=== PATIENT | male | born 1975 | race Caucasian/White ===

== ENCOUNTER 2024-06-19 01:03 | Day surgery (SDC) | payer OTHER, SELFPAY ==
[2024-06-11 11:06] VITALS: BMI 39.4
--- OUTSIDE RECORDS SUMMARY | 2024-06-19 01:06 | XMS_ITS | Clinical Summary ---
Author Organization [facility] Address [address] [place] [id number] Care Team Providers Care Apparel Machinery Instructor Name Role Phone Sarah Young MD Primary Care Provider Social History Tobacco Use Types Packs/Day Years Used Date Smoking Tobacco: Never Assessed Sex and Gender Information Value Date Recorded Sex Assigned at Not on file Legal Sex Male 7:24 PM CDT Gender Identity Not on file Sexual Orientation Not on file Last Filed Vital Signs Vital Sign Reading Time Taken Comments Blood Pressure 146/84 09/18/2012 10:00 AM CDT Pulse 72 09/18/2012 10:00 AM CDT Temperature - - Respiratory Rate - - Oxygen Saturation - - Inhaled Oxygen Concentration - - Weight 122.5 kg (270 lb) 09/18/2012 10:04 AM CDT Height 188 cm (6' 2 ) 09/18/2012 10:04 AM CDT Body Mass Index 34.67 09/18/2012 10:04 AM CDT Plan of Treatment Health Maintenance Due Date Last Done Comments Colorectal Cancer Screening Colonoscopy (10 Years) 1977 Annual Physical 1980 Hepatitis C 11/03/1995 DTaP, Tdap and Td Vaccines ( 1 - Tdap) 1996 Hepatitis B Vaccines (1 of 3 - 19+ 3-dose series) 1996 COVID-19 Vaccine (2023-2 5 season) 2023 Influenza Adult (#1) 2023 Meningococcal B Vaccine Aged Out No l onger eligible based on patient's age to complete this topic Meningococcal Vaccine Aged Out No cedrick timo eligible based on patient's age to complete this topic Pneumococcal Vaccine: Pediat rics (0 to 5 Years) and At-Risk Patients (6 to 64 Years) Aged Out No longer eligible b ased on patient's age to complete this topic RSV Immunizations Under 20 Months Aged Out No longer eligible based on patient's age to complete this topic Care Teams Apparel Machinery Instructor Relationship Specialty Start Date End Date aSrah Young MD [address] [place] [address] PCP - General 02/11/13
--- OUTSIDE RECORDS SUMMARY | 2024-06-19 01:07 | XMS_ITS | Encounter Summary ---
Author Organization [facility] Address [facility] [place] [address] Care Team Providers Care Kitchen Utility Associate Name Role Phone Sarah Young MD Primary Care Provider Encounter Details Date Type Department Care Team (Latest Contact Info) Description 01/29/2018 [facility] , Neeta Toledo MD Social History Tobacco Use Types Packs/Day Years Used Date Smoking Tobacco: Never Assessed Sex and Gender Information Value Date Recorded Sex Assigned at Not on file Legal Sex Male 7:24 PM CDT Gender Identity Not on file Sexual Orientation Not on file documented as of this encounter Plan of Treatment Not on file documented as of this encounter Visit Diagnoses Not on filedocumented in this encounter Care Teams Kitchen Utility Associate Relationship Specialty Start Date End Date Sarah Young MD [address] [place] [address] PCP - General 02/11/13 documented as of this encounter
--- OUTSIDE RECORDS SUMMARY | 2024-06-19 01:07 | XMS_ITS | Data Portability ---
Author Organization [place] - [facility], Main Office Address [address] [place] [address] Care Team Providers Care Economics Instructor Name Role Phone CAYDEN SANTILLAN Primary Care Provider CAYDEN SANTILLAN Referring Provider Assessment Encounter Date Assessment Date Assessment LastModified by Organization Details LastModified Time 09/06/2022 09/06/2022 Continue current therapy try to lose some weight he will see me back in 6 months all questions answered [email or web address] Not available 10/21/2022 21:02:01 02/01/2023 02/01/2023 I will have Orthopedics take a look at him but but I suspect it will be conservative management [email or web address] Not available 02/02/2023 14:42:15 02/07/2023 02/07/2023 Impression: I believe this patient most likely has sustained a tearing of the jemal of the bicipital groove specifically likely tearing of the medial band of the coracohumeral ligament which may also include partial-thicknes s tearing of the subscapularis upper edge or even a small full-thickness tear. He is able to do a subscap liftoff fairly easily. I suspect he has a subluxation based on the positive biceps provocative testing location of his tenderness and the absence of a lela deformity. partial tearing of the long of the biceps is midsubstance could also be a the same way but is usually associated with subluxation. I explained him that the diagnosis of this condition of subluxation of the humeral head would be made by MRI scan. His initial management I recommended a course of physical therapy and prescription for Naprosyn to decrease inflammation. He denies any liver or kidney problems or peptic ulcer disease. Side effects instruction sheet was provided. I will see him back in 6 weeks assess his progress. If he is still having significant symptoms I would recommend proceeding with MRI shoulder at that time. I will see him back in 6 weeks to assess his progress. 30 minutes were spent in total care this patient more than half the time spent in [id number] care. Not available 02/11/2023 16:56:13 03/22/2023 03/22/2023 patient returns. He finished his physical therapy for the right shoulder. He was referred for symptoms of rotator cuff tendinitis when he was seen 6 weeks ago. He finished his 4 week course of Naprosyn 2 weeks ago. Feels that his shoulder is doing great now and he has no problems with. Examination today he has full active range of motion right shoulder without discomfort. It 5 5 muscle strength with thumbs down abduction external rotation belly press and subscap liftoff all without discomfort. Negative primary binge min. Negative speed's. Negative. Yergason's. There is no tenderness no redness swelling or warmth about the right shoulder today skin looks normal. Impression: Patient is doing very well following one-month course of naproxen and course of physical therapy. He has a negative examination today which argues against significant underlying pathology such as rotator cuff tear or biceps tendon subluxation. He is working his regular job without difficulty. I will see him back on as-needed basis. Not available 03/24/2023 15:31:40 Plan of Treatment Reminders Order Date Submit Date Provider Last Modified By Organization Details Last Modified Time Details Appointments None recorded. Lab PSA, serum or plasma [address] [facility] (Lab), [address] [place], [address], 3 15:45:30 HbA1c (hemoglobin A1c), blood [address] [facility] (Lab), [address] [place], [address], 3 15:45:29 CBC w/ auto diff 2022 023 [facility] (Lab), [address] [place], [address], 3 13:19:26 CMP, serum or plasma 2022 023 [facility] (Lab), [address] [place], [address], 3 13:20:48 lipid panel, serum 2022 023 [facility] (Lab), [address] [place], [address], 3 13:20:52 testosteron e, free + total, serum 2022 023 [facility] (Lab), [address] [place], [address], 3 16:09:45 Referral orthopedic surgeon referral - Bicep tendon tear 2022 023 SCHUYLER Varela MD, [address], [facility], [place], [address], 3 16:57:17 Procedures None recorded. Surgeries None recorded. Imaging XR, shoulder 2022 023 [email or web address] [facility] [place], [address], [place], [address], 3 10:08:52 Medication Orders Naprosyn 500 mg tablet 2022 023 [id number], [address], [place], [address], 3 15:23:13 testosteron e cypionate 200 mg/mL intramuscul ar oil 2022 023 [email or web address] Not available 3 11:38:13 Patient TargetsNo targets recorded. Patient InstructionsNo instructions recorded. Reason for Referral Orthopedic Surgeon Referral for Pain in right arm Bicep tendon tear Referring Physician: Cayden Santillan, Internal Medicine, Encounter Date: 02/01/2023 Results Created Date Observation Date Name Description Value Unit Range Abnormal Flag Note LastModifiedBy Organization Detail LastModifiedTime 12/06/1912/05/2022 CBC/C OMPLE TE BLD COUNT W/DIF F white blood cells 8.1 x10'3 /uL 4.2-10 .8 Not Available [facility] (Lab) [address] [place], [address], 12/05/2022 13:19:26 12/06/1912/05/2022 CBC/C OMPLE TE BLD COUNT W/DIF F red blood cells 4.71 x10'6 /uL 4.10-5 .80 Not Available [facility] (Lab) [address] [place], [address], 12/05/2022 13:19:26 12/06/19 23 12/05/2022 CBC/C OMPLE TE BLD COUNT W/DIF F hemoglobin 15.3 g/dL 13.2-1 7.0 Not Available [facility] (Lab) [address] [place], [address], 12/05/2022 13:19:26 12/06/1912/05/2022 CBC/C OMPLE TE BLD COUNT W/DIF F hematocrit 47.0 % 39.3-5 0.0 Not Available [facility] (Lab) [address] [place], [address], 12/05/2022 13:19:26 12/06/1912/05/2022 CBC/C OMPLE TE BLD COUNT W/DIF F mean red cell volume 99.8 fL 80.0-9 7.0 high Not Available [facility] (Lab) [address] [place], [address], 12/05/2022 13:19:26 12/06/1912/05/2022 CBC/C OMPLE TE BLD COUNT W/DIF F mean red cell hemoglobin 32.5 pg 27.0-3 3.0 Not Available [facility] (Lab) [address] [place], [address], 12/05/2022 13:19:26 12/06/1912/05/2022 CBC/C OMPLE TE BLD COUNT W/DIF F mean RBC HGB concentratio n 32.6 g/dL 31.0-3 6.0 Not Available [facility] (Lab) [address] [facility] [place], [address], 12/05/2022 13:19:26 12/06/1912/05/2022 CBC/C OMPLE TE BLD COUNT W/DIF F red cell distribution width 15.0 % 11.8-1 5.5 Not Available [facility] (Lab) [address] [place], [address], 12/05/2022 13:19:26 12/06/1912/05/2022 CBC/C OMPLE TE BLD COUNT W/DIF F platelets 221 x10'3 /uL 150-40 0 Not Available [facility] (Lab) [address] [place], [address], 12/05/2022 13:19:26 12/06/1912/05/2022 CBC/C OMPLE TE BLD COUNT W/DIF F mean platelet volume 11.4 fL 9.0-12 .4 Not Available [facility] (Lab) [address] [place], [address], 12/05/2022 13:19:26 12/06/1912/05/2022 CBC/C OMPLE TE BLD COUNT W/DIF F neutrophils 57.4 % 39.0-7 2.0 Not Available [facility] (Lab) [address] [place], [address], 12/05/2022 13:19:26 12/06/1912/05/2022 CBC/C OMPLE TE BLD COUNT W/DIF F lymphocytes 30.3 % 16.0-4 7.0 Not Available [facility] (Lab) [address] [place], [address], 12/05/2022 13:19:26 12/06/19 23 12/05/2022 CBC/C OMPLE TE BLD COUNT W/DIF F monocytes 8.5 % 5.0-12 .0 Not Available [facility] (Lab) [address] [place], [address], 12/05/2022 13:19:12/06/1912/05/2022 CBC/C OMPLE TE BLD COUNT W/DIF F eosinophils 2.7 % 1.0-7. 0 Not Available [facility] (Lab) [address] [place], [address], 12/05/2022 13:19:12/06/1912/05/2022 CBC/C OMPLE TE BLD COUNT W/DIF F basophils 0.7 % 0.0-2. 0 Not Available [facility] (Lab) [address] [place], [address], 12/05/2022 13:19:26 12/06/1912/05/2022 CBC/C OMPLE TE BLD COUNT W/DIF F immature granulocytes 0.4 % 0.00-0 .50 Not Available [facility] (Lab) [address] [place], [address], 12/05/2022 13:19:26 12/06/1912/05/2022 CBC/C OMPLE TE BLD COUNT W/DIF F neutrophils, absolute count 4.66 x10'3 /uL 1.5-8. 0 Not Available [facility] (Lab) [address] [place], [address], 12/05/2022 13:19:26 12/06/1912/05/2022 CBC/C OMPLE TE BLD COUNT W/DIF F lymphocytes, absolute count 2.46 x10'3 /uL 1.07-3 .43 Not Available [facility] (Lab) [address] [place], [address], 12/05/2022 13:19:26 12/06/1912/05/2022 CBC/C OMPLE TE BLD COUNT W/DIF F monocytes, absolute count 0.69 x10'3 /uL 0.29-0 .99 Not Available [facility] (Lab) [address] [place], [address], 12/05/2022 13:19:12/06/1912/05/2022 CBC/C OMPLE TE BLD COUNT W/DIF F eosinophils, absolute count 0.22 x10'3 /uL 0.02-0 .53 Not Available [facility] (Lab) [address] [place], [address], 12/05/2022 13:19:12/06/1912/05/2022 CBC/C OMPLE TE BLD COUNT W/DIF F basophils, absolute count 0.06 x10'3 /uL 0.01-0 .08 Not Available [facility] (Lab) [address] [place], [address], 12/05/2022 13:19:26 12/06/1912/05/2022 CBC/C OMPLE TE BLD COUNT W/DIF F immature granulocytes ,absolute 0.03 x10'3 /uL 0.00-0 .05 Not Available [facility] (Lab) [address] [place], [address], 12/05/2022 13:19:26 12/06/1912/05/2022 CBC/C OMPLE TE BLD COUNT W/DIF F nucleated red blood cells 0.0 % -0 Not Available [facility] (Lab) [address] [place], [address], 12/05/2022 13:19:26 12/06/19 23 12/05/2022 CBC/C OMPLE TE BLD COUNT W/DIF F NRBC# 0.00 x10'3 /uL Not Available [facility] (Lab) [address] [place], [address], 12/05/2022 13:19:26 12/06/19 23 12/05/2022 COMPR EHENS PHUONG METAB OLIC PANEL sodium 141 mmol/ L 137-14 5 Not Available [facility] (Lab) [address] [place], [address], 12/05/2022 13:20:48 12/06/19 23 12/05/2022 COMPR EHENS PHUONG METAB OLIC PANEL potassium 4.4 mmol/ L 3.5-5. 1 Not Available [facility] (Lab) [address] [place], [address], 12/05/2022 13:20:48 12/06/19 23 12/05/2022 COMPR EHENS PHUONG METAB OLIC PANEL chloride 103 mmol/ L 98-107 Not Available [facility] (Lab) [address] [place], [address], 12/05/2022 13:20:48 12/06/19 23 12/05/2022 COMPR EHENS PHUONG METAB OLIC PANEL carbon dioxide 30 mmol/ L 22-30 Not Available [facility] (Lab) [address] [place], [address], 12/05/2022 13:20:48 12/06/19 23 12/05/2022 COMPR EHENS PHUONG METAB OLIC PANEL anion gap 12.4 mmol/ L 14-22 low Not Available [facility] (Lab) [address] [place], [address], 12/05/2022 13:20:48 12/06/19 23 12/05/2022 COMPR EHENS PHUONG METAB OLIC PANEL glucose 115 mg/dL 70-99 high Not Available [facility] (Lab) [address] [place], [address], 12/05/2022 13:20:48 12/06/19 23 12/05/2022 COMPR EHENS PHUONG METAB OLIC PANEL BUN 17 mg/dL 8-19 Not Available [facility] (Lab) [address] [place], [address], 12/05/2022 13:20:48 12/06/19 23 12/05/2022 COMPR EHENS PHUONG METAB OLIC PANEL creatinine 0.78 mg/dL 0.66-1 .25 Not Available [facility] (Lab) [address] [place], [address], 12/05/2022 13:20:48 12/06/19 23 12/05/2022 COMPR EHENS PHUONG METAB OLIC PANEL GFR >60 Refer ence Range : Carlos ge GFR Healt hy Adult : >60 mL/mi n/1.7 3 m2 Chron ic Kidne y Disea se: 15-60 mL/mi n/1.7 3 m2 Kidne y Failu re: <15/m L/min /1.73 m2 www.n iddk. nih.g ov The MDRD study equat ion has not been valid ated in child jessica <18 years of age; pregn ant women ; the elder ly >85 years of age; or in some racia l or ethni c subgr oups, such as Hiswv nics. Outsi de the valid ated myranda eters , estim ated GFR is less accur ate, requi ring clini eliot judgm ent on a case- by-ca se basis . Clini eliot inter preta tion for other races and ages must be made by the clini indy. The MDRD study equat ion has not been valid ated for the evalu ation of serum creat inine relat ed to nutri werner l statu s or medic ation usage . For perso ns <18 years of age, a pedia tric GFR calcu lator is avail able on the [facility] websi te: https ://jannet james.josh aquino/tio pavon s/kdo qi/gf r_cal culat or Not Available [facility] (Lab) [address] [place], [address], 12/05/2022 13:20:48 12/06/19 23 12/05/2022 COMPR EHENS PHUONG METAB OLIC PANEL alkaline phosphatase 86 U/L 38-126 Not Available [facility] (Lab) [address] [place], [address], 12/05/2022 13:20:48 12/06/19 23 12/05/2022 COMPR EHENS PHUONG METAB OLIC PANEL alanine aminotransfe rase 45 U/L 0-50 Not Available [facility] (Lab) [address] [place], [address], 12/05/2022 13:20:48 12/06/19 23 12/05/2022 COMPR EHENS PHUONG METAB OLIC PANEL aspartate aminotransfe rase 26 U/L 15-46 Not Available [facility] (Lab) [address] [place], [address], 12/05/2022 13:20:48 12/06/19 23 12/05/2022 COMPR EHENS PHUONG METAB OLIC PANEL bilirubin, total 0.50 mg/dL 0.20-1 .30 Not Available [facility] (Lab) [address] [place], [address], 12/05/2022 13:20:48 12/06/19 23 12/05/2022 COMPR EHENS PHUONG METAB OLIC PANEL calcium 9.8 mg/dL 8.4-10 .2 Not Available [facility] (Lab) [address] [place], [address], 12/05/2022 13:20:48 12/06/19 23 12/05/2022 COMPR EHENS PHUONG METAB OLIC PANEL total protein 7.5 g/dL 6.3-8. 2 Not Available [facility] (Lab) [address] [place], [address], 12/05/2022 13:20:48 12/06/19 23 12/05/2022 COMPR EHENS PHUONG METAB OLIC PANEL albumin 4.4 g/dL 3.4-5. 0 Not Available [facility] (Lab) [address] [place], [address], 12/05/2022 13:20:48 12/06/19 23 12/05/2022 COMPR EHENS PHUONG METAB OLIC PANEL globulin 3.1 g/dL 2.6-4. 2 Not Available [facility] (Lab) [address] [place], [address], 12/05/2022 13:20:48 12/06/19 23 12/05/2022 COMPR EHENS PHUONG METAB OLIC PANEL A/G ratio 1.4 ratio 1.0-2. 0 Not Available [facility] (Lab) [address] [place], [address], 12/05/2022 13:20:48 12/06/19 23 12/05/2022 LIPID PANEL cholesterol 199 mg/dL 140-19 9 NIH LISA NSUS RECOM MENDA TION FOR MOLINA STERO L: ADULT CHILD LOW RISK: <200 <170 BORDE RLINE : <200- 239 ----- HIGH RISK: >240 >200 Not Available [facility] (Lab) [address] [place], [address], 12/05/2022 14:33:23 12/06/1912/05/2022 LIPID PANEL triglyceride s 209 mg/dL 0-150 high NIH LISA NSUS REPOR T RECOM MENDA TION FOR TRIGL YCERI BOB: ADULT CHILD LOW RISK: <150 ----- BODER LINE: 150-1 99 ----- HIGH RISK: >200 ----- Not Available [facility] (Lab) [address] [place], [address], 12/05/2022 14:33:23 12/06/1912/05/2022 LIPID PANEL HDL cholesterol 48 mg/dL 40- Not Available [facility] (Lab) [address] [place], [address], 12/05/2022 14:33:23 12/06/1912/05/2022 LIPID PANEL LDL cholesterol, calculated 109 mg/dL 0-130 NIH LISA NSUS REPOR T RECOM MENDA TIONS FOR LDL: ADULT CHILD LOW RISK <130 <110 (OPTI MAL LDL) <100 ----- BORDE RLINE : 130-1 59 ----- HIGH RISK: >160 >130 A TRIGL YCERI DE RESUL T >400 INVAL IDATE S THE CALCU LATIO N FOR LDL FRACT IONAT ION - THE LDL RESUL T WILL NOT BE REPOR HE. Not Available [facility] (Lab) [address] [place], [address], 12/05/2022 14:33:23 12/06/1912/05/2022 PSA SCREE N PSA medicare screen 0.69 NG/mL 0.00-4 .00 Not Available [facility] (Lab) [address] [place], [address], 12/05/2022 13:48:50 12/06/1912/05/2022 HEMOG LOBIN A1C HA1C 6.5 % 4.0-6. 0 high Diabe dre Scree michele Crite freddy: <5.7% Consi stent with absen ce of diabe dre 5.7-6 .4% Consi stent with incre ased risk for diabe dre (pred iabet es) >OR=6 .5% Consi stent with diabe dre REFER ENCE: Diabe dre Care 2016, 39(Alan ppl.1 ):s13 -s22 Not Available [facility] (Lab) [address] [place], [address], 12/05/2022 20:07:23 12/06/19 23 12/10/2022 TESTO STERO NE, FREE+ TOTAL LC/MS testosterone , total, lc/MS 277.1 NG/dL 264.0- 916.0 This [facility] rp LC/MS -MS metho d is curre ntly certi fied by the CDC Hormo ne Stand ardiz ation Progr am (HoSt ). Adult male refer ence inter tara is based on a popul ation of healt hy nonob florinda males (BMI <30) betwe en 19 and 39 years old. Tiana mueller, et.al . JCEM 2017, 102;1 161-1 173. PMID: 84185 103. Not Available [facility] (Lab) [address] [place], [address], 12/10/2022 16:09:44 12/06/19 23 12/10/2022 TESTO STERO NE, FREE+ TOTAL LC/MS testosterone , free 6.71 NG/dL 5.00-2 1.00 Not Available [facility] (Lab) [address] [place], [address], 12/10/2022 16:09:44 12/06/19 23 12/10/2022 TESTO STERO NE, FREE+ TOTAL LC/MS % free testosterone 2.42 % 1.50-4 .20 Perfo rmed at: [facility] [place] [address] [facility] [place] [address] Lab Direc tor: Jessica cheema MD, Phone : [phone] Not Available [facility] (Lab) [address] [place], [address], 12/10/2022 16:09:44 02/08/20 23 XR, shoul jackie No observ ation record ed. [email or web address] [facility] [place] [address], [place], [address], 02/11/2023 16:48:57 Result Notes None recorded. Problems Name Problem SNOMED Code Status Onset Date Resolution Date Notes Provider Name and Address Organization Details Recorded Time Renewal of prescripti on Active 2021 Not Available [facility] 4 01:37:26 Testicular hypofuncti on 297134464 Active 2021 Not Available [facility] 4 01:37:26 Testostero ne level below reference range 901542229 Active 2021 Not Available [facility] 4 01:37:26 Chronic back pain 355825582 Active 2016 Not Available [facility] 4 01:37:26 Foot callus 389379427 Active 2021 Not Available [facility] 4 01:37:26 Pain in left foot 0224387447407 07 Active 2021 Not Available [facility] 4 01:37:26 Dyslipidem ia 001600626 Active 2019 Not Available [facility] 4 01:37:26 Porokerato sis 688288546 Active 2021 Not Available [facility] 4 01:37:26 Essential hypertensi on 89978342 Active 2016 Not Available [facility] 4 01:37:26 Blood glucose outside reference range 916339528 Active 2022 Not Available [facility] 4 01:37:26 Pain in right arm 757261416 Active 2022 Not Available [facility] 4 01:37:26 Pain in right arm 970145107 Active 2022 Not Available [facility] 4 01:37:26 Pain of right shoulder joint 4487217644276 9100 Active 2022 Not Available [facility] 4 01:37:26 Problem Notes None recorded. Procedures Surgical History Date Name Laterality Status Provider Name and Address Organization Details Recorded Time 06/07/19 total replacement of hip completed Not Available [facility] 05/24/2022 00:57:11 Back Surgery completed Not Available [facility] 05/24/2022 00:57:11 Imaging Results Imaging Date Name Status LastModified by Organiz ation Details LastModified Time 02/07/2023 XR, shoulder completed [email or web address] [facility] [place] [address], [place], [address], 02/11/2023 16:48:57 Procedure Notes None recorded. Medical Equipment None Reported. Allergies No known drug allergies Medications Name Sig Start Date Stop Date Status Note LastModified by Organization Details LastModified Time telmisart an 40 mg-hydroc hlorothia zide 12.5 mg tablet Take 1 tablet every day by oral route. 02/12 completed Not Available Not Available Not Available prednison e 10 mg tablet 01/10 completed Not Available Not Available Not Available meloxicam 15 mg tablet 05/11 completed Not Available Not Available Not Available hydrocodo ne 10 mg-acetam inophen 325 mg tablet 05/11 completed Not Available Not Available Not Available triamcino lone acetonide 0.1 % topical cream APPLY TO HANDS QHS active Not Available Not Available No t Available oxycodone -acetamin ophen 5 mg-325 mg tablet 09/20 completed Not Available Not Available Not Available lisinopri l 20 mg-hydroc hlorothia zide 25 mg tablet TAKE ONE TABLET DAILY 01/08 completed stopped and changed to Telmisar myles Not Available Not Available Not Available testoster one cypionate 200 mg/mL intramusc ular oil INJECT 0.25 ML INTRAMUS CULARLY EVERY 4 WEEKS (DISCARD UNUSED PORTION AFTER FIRST USE) 02/07 completed Not Available Not Available Not Available methylpre dnisolone 4 mg tablets in a dose pack Take 1 dose pk by oral route as directed . 01/08 completed Not Available Not Available Not Available losartan 50 mg-hydroc hlorothia zide 12.5 mg tablet TAKE 1 TABLET BY MOUTH DAILY 2023 active Not Available Not Available Not Avai lable naproxen 500 mg tablet TAKE 1 TABLET BY MOUTH TWICE A DAY 03/22 completed Not Available Not Available Not Available BD Luer-Sourav Syringe 3 mL 21 gauge x 1 USE DIRECTED WITH TESTOSTE RAMO 02/07 completed Not Available Not Available Not Available oxycodone 5 mg tablet 09/20 completed Not Available Not Available Not Available enoxapari n 40 mg/0.4 mL subcutane ous syringe active Not Available Not Available Not Available rosuvasta tin 10 mg tablet TAKE 1 TABLET BY MOUTH DAILY 03/24 completed Not Available Not Available Not Available rosuvasta tin 20 mg tablet TAKE 1 TABLET BY MOUTH DAILY active Not Available Not Available No t Available Tylenol 2021 active Not Available Not Available Not Avai lable diclofena c 1 % topical gel 09/20 completed Not Available Not Available Not Available testoster one cypionate 200 mg/mL intramusc ular kit Inject 1 mL every 4 weeks by intramus cular route. 02/07 completed last filled: 09/17 next OV: 12/26 Not Available Not Available Not Available Xtampza ER 18 mg capsule sprinkle 09/20 completed Not Available Not Available Not Available Vitals Date Recorded Body mass index (BMI) Body height Heart rate Body temperature Body weight Systolic blood pressure Diastolic blood pressure Provider Name and Address Organization Details Last Updated DateTime 2 39.7 kg/m2 182.88 cm 84 /min 98.1 [degF] 397120. 56 g 128 mm[Hg] 84 mm[Hg] Not Available [facility] 3 01:03:17 Date Recorded Body height Body mass index (BMI) Body weight Body temperature Heart rate Systolic blood pressure Diastolic blood pressure Provider Name and Address Organization Details Last Updated DateTime 3 182.88 cm 40.6 kg/m2 573567. 12 g 97.4 [degF] 84 /min 142 mm[Hg] 92 mm[Hg] SHIRA Guallpa [place] [facility] 3 10:09:52 Date Recorded Body height Body mass index (BMI) Body weight Body temperature Heart rate Systolic blood pressure Diastolic blood pressure Provider Name and Address Organization Details Last Updated DateTime 3 182.88 cm 41.8 kg/m2 952255. 45 g 97.7 [degF] 90 /min 128 mm[Hg] 78 mm[Hg] Rosalinda Baird MA [facility] Ryan [facility] 16:17:17 Date Recorded Body height Body mass index (BMI) Body weight Provider Name and Address Organization Details Last Updated DateTime 02/07/2023 180.34 cm 42.4 kg/m2 005676.08 g SHIRA [place] [facility] Ryan [facility] 02/07/2023 11:41:17 Date Recorded Body height Provider Name an d Address Organization Details Last Updated DateTime 03/22/2023 180.34 cm SHIRA [place] [facility] 03/22/2023 15:23:05 Social History Question Answer Notes LastModified by Organizat ion Details LastModified Time Tobacco Smoking Status Current Every Day Smoker Not Available [facility] 05/24/2022 00:55:32 Do You Have An Advance Directive? No [id number] Information not available 05/24/2022 What Is Your Level Of Alcohol Consumption? Occasional [id number] Information not available 05/24/2022 What Is Your Level Of Caffeine Consumption? Moderate [id number] Information not available 05/24/2022 How Much Tobacco Do You Chew? None [id number] Information not available 05/24/2022 In The 14 Days Before Symptom Onset, Have You Had Close Contact With A Laboratory-confi rmed COVID-19 While That Case Was Ill? No [id number] Information not available 05/24/2022 In The 14 Days Before Symptom Onset, Have You Had Close Contact With A Person Who Is Under Investigation For COVID-19 While That Person Was Ill? No [id number] Information not available 05/24/2022 What Type Of Diet Are You Following? REGULAR [id number] Information not available 05/24/2022 Which Illicit Or Recreational Drugs Have You Used? None [id number] Information not available 05/24/2022 Do You Or Have You Ever Used E-cigarettes Or Vape? Former User Of Electronic Cigarettes [id number] Information not available 05/24/2022 What Is Your Occupation? [employer] [id number] Information not available 05/24/2022 Have There Been Any Changes To Your Family Or Social Situation? No [id number] Information not available 05/24/2022 Are There Any Guns Present In Your Home? No MIGRATION.01382 [id number] Information not available 05/24/2022 Do You Use Insect Repellent Routinely? No MIGRATION.71706 [id number] Information not available 05/24/2022 Where Do You Live? [facility] MIGRATION.76367 [id number] Information not available 05/24/2022 What Was The Date Of Your Most Recent Tobacco Screening? 02/01/2023 Information not available 02/01/2023 Do You Have Any Pets? Yes [id number].73026 [id number] Information not available 05/24/2022 What Is Your Relationship Status? MIGRATION.53784 [id number] Information not available 05/24/2022 Do You Have Smoke And Carbon Monoxide Detectors In Your Home? Yes MIGRATION.71484 24462 Information not available 05/24/2022 At What Age Did You Start Smoking Tobacco? 20 MIGRATION.70257 [id number] Information not available 05/24/2022 Are You Passively Exposed To Smoke? Yes MIGRATION.94503 94065 Information not available 05/24/2022 Do You Or Have You Ever Used Smokeless Tobacco? Never Used Smokeless Tobacco MIGRATION.52787 72906 Information not available 05/24/2022 Are There Any Smokers In Your House? Yes MIGRATION.69702 11404 Information not available 05/24/2022 How Much Tobacco Do You Smoke? 0.5 PPD MIGRATION.59834 61397 Information not available 05/24/2022 Do You Feel Stressed (tense, Restless, Nervous, Or Anxious, Or Unable To Sleep At Night)? [id number] MIGRATION.02148 17498 Information not available 05/24/2022 Do You Use Sunscreen Routinely? No MIGRATION.59179 95389 Information not available 05/24/2022 Has Tobacco Cessation Counseling Been Provided? No MIGRATION.10591 70862 Information not available 05/24/2022 Have You Recently Traveled Abroad? No Information not available 02/01/2023 Do You Have Any Dietary Restrictions? No MIGRATION.98333 75938 Information not available 05/24/2022 Sex: Unknown Functional Status Question Answer Note LastModified by Organizat ion Details LastModified Time What is your exercise level? Occasional [id number] Information not available 05/24/2022 Mental Status None recorded. Family History Relationship Description Onset Age of this Age Resolved Age Notes LastModified by Organization Details LastModified Time Mother Hypertensive disorder [id number] Not available 05/24/2022 00:57:16 Maternal Grandmother Malignant tumor of lung [id number].[id number] Not available 05/24/2022 00:57:16 Medical History Condition Response NERVE DISEASE N BLINDNESS N RHEUMATIC FEVER N KIDNEY STONES N BLADDER PROBLEMS N OTHER # 1 N POLIO N LUNG DISEASE/DISORDER N RADIATION / CHEMOTHERAPY N COPD N Other # 2 N BLOOD DISEASES N SURGERY N EAR OR HEARING PROBLEMS N MUMPS N BOWEL PROBLEMS N DEPRESSION (INCLUDING POST ) N STROKE/TIA N ULCERS N BENIGN PROSTATIC HYPERPLASIA N MEASLES N MYOCARDIAL INFARCTION N OBESITY N GERD/NAUSEA N ANEURYSM N URINARY/BLADDER/KIDNEY PROBLEMS N INPATIENT PSYCH CARE N CORONARY ARTERY DISEASE (CAD) N ADDICTION CONCERNS N Impotence N ENDOMETRIOSIS N USE OF BLOOD THINNERS N SKIN PROBLEMS N GASTROINTESTINAL DISORDER N PERIPHERAL VASCULAR DISEASE N MUSCLE,JOINT OR BONE PROBLEMS N GASTROINTESTINAL BLEEDING N BLOOD CLOTS N ASTHMA N CATARACTS N ERECTILE DYSFUNCTION N VARICOSITIES N GI PROBLEMS N Low Testosterone N INFERTILITY N AIDS/HIV N LIVER DISEASE N MALE HYPOGONADISM N HYPERTENSION Y Deficiency N ANXIETY DISORDER N BLOOD TRANSFUSION N ANEMIA/BLOOD DISORDER N CHRONIC EAR INFECTIONS N BRONCHITIS N TUBERCULOSIS N GLAUCOMA N FOOT PROBLEM N DIVERTICULITIS N SLEEP APNEA N CHICKENPOX N INFECTIOUS DISEASE N PROSTATE N HEART ARRHYTHMIA N INSOMNIA N HIGH CHOLESTEROL / HYPERLIPIDEMIA Y EYE PROBLEMS N HYPERTHYROIDISM N NEUROLOGICAL PROBLEMS N EDEMA N CHRONIC PAIN SYNDROME N HYPOTHYROIDISM N CONSTIPATION N CAROTID BLOCKAGE N BACK / NECK PROBLEMS Y HAVE YOU BEEN HOSPITALIZED OR SEEN IN [facility] IN THE PAST YEAR ? N ATHEROSCLEROSIS N BREAST PROBLEMS N DIALYSIS N ECZEMA N OSTEOPOROSIS N ARTHRITIS N APPENDICITIS N DIABETES, TYPE N BAD TEETH N ENT N HEARTBURN / REFLUX N AUTISM SPECTRUM DISORDER (ASD) N HEPATITIS / LIVER DISEASE N PULMONARY DISEASE N GOUT N SLEEP DISORDER N ALZHEIMER'S DISEASE N Brain Problems N DEMENTIA N HERPES N SEIZURES/EPILEPSY N HEADACHES/MIGRAINES N VASCULAR DISEASE N PACEMAKER N Blood Disorder N DIZZINESS N HEART DISEASE/HEART PROBLEMS N KIDNEY DISEASE N MULTIPLE SCLEROSIS N CANCER: SPECIFY N CARDIAC ARRHYTHMIA N ANESTHESIA COMPLICATIONS N ATRIAL FIBRILLATION N Gall Stones N PULMONARY EMBOLISM N AUTOIMMUNE DISEASE N Immunizations Vaccine Type Date Status Note Provider Nam e and Address Organization Details Recorded Time COVID-19, mRNA, LNP-S, PF, 30 mcg/0.3 mL dose 2 completed Not Available [facility] 04/26/2023 01:37:26 Influenza, split virus, quadrivalent, preservative 6 completed Not Available [facility] 04/26/2023 01:37:26 Past Encounters Encounter ID Performer Location Encounter Start Date Encounter Closed Date Diagnosis/Indication Diagnosis SNOMED-CT Code Diagnosis ICD10 Code Diagnosis Note [id number] [facility] [address] [place] [address] Em[place]., [address] [address] 06/09/2020 00:00:00 06/20/2020 21:05:09 [id number] [facility] Internal Med [facility] [address] [place] [address] Emilee., [address] [address] 10/14/2020 00:00:00 10/17/2020 10:31:05 [id number] [facility] Med [facility] [address] [place] [address] Emilee., [address] [address] 04/21/2021 00:00:00 04/24/2021 20:30:12 [id number] [facility] Med [facility] [address] [place] [address] Emilee., [address] [address] 10/19/2021 00:00:00 10/23/2021 15:15:01 [id number] [facility] [place] [address] [facility] [address] [place] [address] 11/07/2021 00:00:00 11/08/2021 09:55:17 [id number] [facility] [address] [place] [address] Emilee., [address] [address] 03/01/2022 00:00:00 03/01/2022 22:23:43 [id number] Cayden Santillan MD [facility] Internal [facility] [address] [place] [address] Emilee., [address] [address] 09/06/2022 09:59:42 09/06/2022 10:53:10 Testosterone level below reference range 269027190 R79.89 Essential hypertension 26918167 I10 Blood gluc ose outside reference range 378006185 R73.09 Screening for malignant neoplasm of prostate [id number] Z12.5 Dyslipidemia 855724149 E 78.5 [id number] Cayden Santillan MD [facility] [address] [facility] Kevyn [place] [address] 02/01/2023 15:40:31 02/01/2023 17:20:27 Pain in right arm [id number] M79.809 [id number] Reese Varela MD [facility] [place] [address] [facility] [address] [place] [address] 02/07/2023 11:12:08 02/13/2023 10:08:52 Pain of right shoulder joint [id number] M25.901 [id number] Reese Varela MD [facility] [address] [place] [address] 03/22/2023 15:14:26 03/28/2023 09:07:04 Pain of right shoulder joint [id number] 2326635 M25.511 Health Concerns Section Related Observation LastModified by Organization Detai ls LastModified Time None Recorded Concern Status LastModified by Organization Details LastModified Time None Recorded Advance Directives Directive N: Payers Encounter Date Sequence Insurance Name Policy Number Policy Sparrow Covered Member ID Sparrow Member ID Guarantor Name 09/06/2022 1 [facility] [id number] Antonio Mikolaszuk [id number] Antonio A Mikolaszuk 02/01/2023 1 [facility] [id number] Antonio Mikolaszuk [id number] Antonio A Mikolaszuk 02/07/2023 1 [facility] [id number] Antonio Mikolaszuk [id number] Antonio A Mikolaszuk 03/22/2023 1 [facility] [id number] Antonio Mikolaszuk [id number] Antonio A Mikolaszuk Notes Date Note Type Note Provider Name and Address Organization Details Recorded Time 09/06/2022 text/html Low T taking supplementation. Hypertension no headache no dizziness. Elevated blood sugar needs A1c dyslipidemia tries to follow a low-fat diet Cayden Santillan MD [address] [place] [address], [facility] [address], [place], [address], [place] [facility] 10/21/2022 21:02:21 02/01/2023 text/html Helping let this run off the floor pop in his right bicep and now pain no numbness or tingling or loss of function Cayden Santillan MD [address], [facility] [address], [place], [address], [facility] [employer] [facility] 02/02/2023 14:42:29 02/07/2023 text/html patient is a 47-year-old gentleman referred by Dr. Santillan for evaluation of his right shoulder. Approximately 13 or 14 days ago he pulled his friend off the floor with his right hand which was in a supinated position and he felt a pop in the anteromedial upper arm in the region of the medial biceps. His shoulder has been sore since. He denies any pain at the elbow. 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 Occasionally he has to do heavy lifting but his employer has accommodated his difficulties with the right arm and he does not need a work restriction note today. He denies any prior problems with his right shoulder. He has been taking Tylenol for pain. His past history is significant for total hip [place] [address] Brown and back surgery in 2010. The patient does smoke 1 pack of cigarettes per day. Reese Varela MD [address], [facility] [address], [place], [address], [facility] [employer] [facility] 02/11/2023 16:56:37
--- OUTSIDE RECORDS SUMMARY | 2024-06-19 01:07 | XMS_ITS | Referral Summary ---
Author Organization [facility] Address [address] [place] [address] Care Team Providers Care Game Show Host Name Role Phone Joseph Santillan MD Primary Care Provider [phone] Allergies No known active allergies Medications acetaminophen (TYLENOL) 325 mg tablet Take 2 tablets (650 mg total) by mouth every 4 (four) hours as needed 06/27/[address] (VOLTAREN) 75 mg EC tablet Take 1 tablet (75 mg total) by mouth 2 (two) times a day 08/22/2023 Active enoxaparin (LOVENOX) 40 mg/0.4 mL syringe Active losartan-hydroC HLOROthiazide (HYZAAR) 50-12.5 mg per tablet Take 1 tablet by mouth daily 04/09/2023 Active triamcinolone (KENALOG) 0.1 % cream APPLY TO HANDS QHS Active lisinopril-hydr oCHLOROthiazide (ZESTORETIC) 20-25 mg per tablet Take 1 tablet by mouth daily Active Active Problems Problem Noted Date Diagnosed Date Pain in joint of right shoulder 02/06/2023 Pain in right arm 01/31/2023 Blood glucose abnormal 09/06/2022 Testicular hypofunction 11/11/2021 Foot callus 11/08/2021 Porokeratosis 11/07/2021 Decreased testosterone level 05/03/2021 Pain in left foot 04/20/2021 Dyslipidemia 02/07/2020 Primary osteoarthritis of both hips 06/06/2017 Chronic back pain 12/13/2016 Essential hypertension 12/13/2016 Immunizations Immunization Administration Dates Next Due Influenza, Quadrivalent, Split, Intramuscular Social History Tobacco Use Types Packs/Day Years Used Date Smoking Tobacco: Every Day Cigarettes Tobacco Cessation:Ready to Q uit: Not Asked; Counseling Given: Not Answered Personal Safety Answer Date Recorded Getting School Help Needed Not on file 09/06 Sex and Gender Information Value Date Recorded Sex Assigned at Not on file 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 Gender Identity Not on file Sexual Orientation Not on file Last Filed Vital Signs Vital Sign Reading Time Taken Comments Blood Pressure - - Pulse - - Temperature - - Respiratory Rate - - Oxygen Saturation - - Inhaled Oxygen Concentration - - Weight 130.6 kg (288 lb) 10/09/2023 3:55 PM CDT Height 182.9 cm (6') 10/09/2023 3:55 PM CDT Body Mass Index 39.06 10/09/2023 3:55 PM CDT Plan of Treatment Not on file Insurance [facility] Address: [facility] [id number] [place] [id number] [facility] Address: [place] [address] Care Teams Game Show Host Relationship Specialty Start Date End Date Joseph Santillan MD [address] [place] [address] PCP - General Internal Medicine 09/07/23
--- OUTSIDE RECORDS SUMMARY | 2024-06-19 01:07 | XMS_ITS | Clinical Summary ---
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 Gender Identity Not on file Sexual Orientation Not on file Obstetrics History Last Filed Vital Signs Vital Sign Reading Time Taken Comments Blood Pressure - - Pulse - - Temperature - - Respiratory Rate - - Oxygen Saturation - - Inhaled Oxygen Concentration - - Weight 130.6 kg (288 lb) 10/09/2023 3:55 PM CDT Height 182.9 cm (6') 10/09/2023 3:55 PM CDT Body Mass Index 39.06 10/09/2023 3:55 PM CDT Plan of Treatment Health Maintenance Due Date Last Done Comments Colon Cancer Screening-Colonoscopy 1977 Depression Screening 1977 Hepatitis C Screening 1977 DTaP/Tdap/Td Vaccine (1 - Tdap) 1988 Hepatitis B Screening 11/03/1995 Regular Well Visit/Exam 18-64 11/03/1995 Pneumococcal vaccine <65 (1 of 2 - PCV) 1996 Covid-19 Vaccine (3 - 2023-2 5 season) 2023 04/24/2021, 04/03/2021 Influenza Vaccine (#1) 2023 12/25/2015 HPV Vaccines Aged Out No longer eligi ble based on patient's age to complete this topic Insurance [facility] [place] [id number] Care Teams Transition Manager Relationship Specialty Start Date End Date Joseph Santillan MD [address] [place] [address] PCP - General Internal Medicine 09/07/23
--- OUTSIDE RECORDS SUMMARY | 2024-06-19 01:07 | XMS_ITS | Clinical Summary ---
Author Organization [facility] Address [address] [place] [address] Phone Care Team Providers Care Weaving Instructor Name Role Phone Joseph Santillan MD Primary Care Provider [phone] Allergies No known active allergies Medications lisinopril-hydro CHLOROthiazide (PRINZIDE, ZESTORETIC) 20-25 MG Tablet Take 1 Tab by mouth daily. Active OxyCODONE ER (XTAMPZA ER) 18 MG Capsule Extended Release 12 hour Abuse-Deterrent Take 18 mg by mouth 2 times daily. Active oxyCODONE-acetam inophen (PERCOCET) 5-325 MG Tablet Take 1 Tab by mouth every 6 hours as needed for Pain. Active acetaminophen (TYLENOL) 325 MG Tablet Take 650 mg by mouth every 4 hours as needed for Pain. 06/27/2017 Active Active Problems Problem Noted Date Diagnosed Date Primary osteoarthritis of both hips 06/06/2017 Family History Medical History Relation Name Comments Hypertension Mother Relation Name Status Comments Father Alive Mother Alive Social History Tobacco Use Types Packs/Day Years Used Date Smoking Tobacco: Every Day Cigarettes Smokeless Tobacco: Never Alcohol Use Standard Drinks/Week Comments No 0 (1 standard drink = 0.6 oz pur e alcohol) Sex and Gender Information Value Date Recorded Sex Assigned at Not on file Legal Sex Male 10:45 PM CDT Gender Identity Not on file Sexual Orientation Not on file Last Filed Vital Signs Vital Sign Reading Time Taken Comments Blood Pressure 140/85 07/05/2017 12:24 PM CDT Pulse 78 07/05/2017 12:24 PM CDT Temperature 35.9 C (96.7 F) 07/05/2017 12:24 PM CDT Respiratory Rate 15 07/05/2017 12:24 PM CDT Oxygen Saturation 98% 07/05/2017 12:24 PM CDT Inhaled Oxygen Concentration - - Weight 97.1 kg (214 lb) 06/09/2017 2:17 PM CDT Height 182.9 cm (6') 06/09/2017 2:17 PM CDT Body Mass Index 29.02 06/09/2017 2:17 PM CDT Plan of Treatment Health Maintenance Due Date Last Done Comments Hepatitis C Virus (HCV) Screening 1977 TdaP Immunization 1977 Hepatitis B Immunization (1 of 3 - 19+ 3-dose series) 1996 Colonoscopy 2022 Colorectal Cancer Screening 2022 Influenza Immunization (#1) 2023 12/25/2015 SARS-COV-2 Immunization ( season) 2023 04/03/2021 Respiratory Syncytial Virus (RSV) Immunization (Adult) (1 - 1-dose 75+ series) 2052 Meningococcal Immunization (ACWY) Aged Out No longer eligible based on patient's age to complete this topic Pneumococcal Immunization Combined Aged Out No longer eligible based on patient's age to complete this topic Rotavirus Immunization Aged Out No lo nger eligible based on patient's age to complete this topic Medical Devices Implanted Type Area Precision Machine Operator Device Identifier Shelf Expiration Date Model / Serial / Lot Shell Actb 58mm Hip 7 Screw Hole Biofoam Dynasty - [id number] Implanted:Qty: 1 on 06/06/2017 at [facility] IMPLANT Left: Hip [employer] 09/14/2024 [id number] / [id number] / [id number] Screw Bone 6.5mm 30mm Dynasty Lineage Biofoam Actb - [id number] Implanted:Qty: 2 on [facility]/2017 [facility] IMPLANT Left: Hip [employer] 09/15/2024 [id number] / [id number] / [id number] Screw Bone 6.5mm 25mm Dynasty Lineage Biofoam Actb - [id number] Implanted:Qty: 1 on 06/06/2017 at [facility] IMPLANT Left: Hip [employer] 09/06/2024 [id number] / [id number] / [id number] Liner Actb Dynasty A-Class 15d 42mm Poly Biofoam Hip - [id number] Implanted:Qty: 1 on 06/06/2017 at [facility] IMPLANT Left: Hip [employer] 01/22/2025 [id number] / [id number] / [id number] Sleeve Centering 40mm Profemur Conserve Long Total Neck Head - [id number] Implanted:Qty: 1 on 06/06/2017 at [facility] IMPLANT Left: Hip [employer] 02/07/2025 [id number] / [id number] / [id number] Conserve Total Bch Femoral Head Implanted:Qty: 1 on 06/06/2017 at [facility] Left: Hip [employer] 04/18/2024 [id number] / [id number] / [id number] Cancellous Self-Tapping Bone Screw Implanted:Qty: 1 on 06/06/2017 at [facility] Left: Hip [employer] 06/19/2024 [id number] / [id number] / [id number] [employer] Renaissance Classic Femoral Stem W/Short Neck Implanted:Qty: 1 on 06/06/2017 at [facility] Left: Hip [employer] 03/25/2021 [id number] / [id number] / [id number] Explanted Type Area Precision Machine Operator Device Identifier Shelf Expiration Date Model / Serial / Lot Screw Bone 6.5mm 30mm Dynasty Lineage Biofoam Actb - [id number] Explanted:Qty: 1 on 06/06/2017 at [facility] IMPLANT Left: Hip [employer] 09/15/2024 [id number] / [id number] / [id number] [place] /64 - [id number] Explanted:Qty: 1 on 06/06/2017 at [facility] IMPLANT [employer] D-078 / D-078 / [id number] Advance Directives * Full Code (Latest Code Status on File) Date Activated Date Inactivated Comments 06/27/2017 11:05 AM Care Teams Weaving Instructor Relationship Specialty Start Date End Date Joseph Santillan MD PCP - General Internal Medicine 04/23/17
--- OUTSIDE RECORDS SUMMARY | 2024-06-19 01:07 | XMS_ITS | Data Portability ---
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 Warned of the ill effects of tobacco which were included but not limited to increased tumors of the aerodigestive tract increased incidence of heart attack stroke and cancer that could lead to sudden or chronic medical illness [email or web address] Not available 08/11/2023 22:21:07 01/30/2024 01/30/2024 blood pressure doing fine continue with the losartan dyslipidemia needs to lose some weight he needs to take his diet seriously continue with the rosuvastatin. For arthritic complaints he will use Tylenol p.r.n. we will schedule a colonoscopy he was advised to start walking regularly. Continue with CPAP. Follow up with me in 4 months. Quitting tobacco care instructions. Healthy lifestyle care instru [email or web address] Not available 02/10/2024 15:29:03 Plan of Treatment Reminders Order Date Submit Date Provider Last Modified By Organization Details Last Modified Time Details Appointments ANY 15 2024 01:00P Robe Santillan MD Not available Not available Not available Lab PSA, total, serum or plasma 2023 024 [facility], [address] [address], [place], [address], 01/31/2024 11:18:40 lipid panel, serum 11/06/ 2024 11/06/2 024 [facility], [address], [address], [place], [address], 01/31/2024 11:18:35 CBC w/ auto diff 2023 024 [facility], [address], [place], [address], 01/31/2024 11:18:39 CMP, serum or plasma 2023 024 [facility], [address], [place], [address], 01/31/2024 11:18:37 HbA1c (hemoglob in A1c), blood 2023 024 [facility], [address], [address], [place], [address], 07/26/2023 10:12:49 unlisted lab - T4, free 2023 024 [facility], [address], [address], [place], [address], 07/26/2023 10:12:48 T3, free, serum or plasma 2023 024 [facility] SAHARA, [address], [address], [place], [address], 07/26/2023 10:12:52 CMP, serum or plasma 2023 024 [facility], [address], [address], [place], [address], 07/26/2023 10:12:49 TSH, ultra-sen sitive, serum 2023 024 [facility], [address], [address], [place], [address], 07/26/2023 10:12:50 lipid panel, serum 2023 024 [facility], [address], [address], [place], [address], 07/26/2023 10:12:47 CBC w/ auto diff 2023 024 [facility], [address], [address], [place], [address], 07/26/2023 10:12:51 ALT (alanine aminotran sferase), serum or plasma 2014 015 [email or web address] [facility], [address], [address], [place], [address], 07/12/2015 09:28:59 AST/SGOT (aspartat e aminotran sferase), serum or plasma 2014 015 sumanvala [facility], [address], [address], [place], [address], 07/12/2015 09:33:17 lipid panel, serum 2014 015 jennia [facility], [address] [address], [address], [place], [address], 07/12/2015 09:29:57 Referral None recorded. Procedures colonosco py screening (PROC) 2023 024 [facility], [address], [address], [place], [address], 05/02/2024 10:30:25 Surgeries None recorded. Imaging None recorded. Medication Orders podofilox 0.5 % topical solution 2014 015 [facility], [address] [place], [address], 07/25/2023 14:17:52 Lipitor 80 mg tablet 2014 015 [facility], [address] [place], [address], 07/25/2023 14:17:48 losartan 50 mg-hydroc hlorothia zide 12.5 mg tablet 2014 015 [facility], [address] [place], [address], 04/01/2014 13:33:25 Patient TargetsNo targets recorded. Patient Instructions Encounter Date Encounter Id Patient Instructions Last Modified By Organization Details Last Modified Time 04/01/2014 [id number] high cholesterol : care instructions asavala Not available 04/01/2014 15:32:56 high blood pressure: care instructions asavala Not available 04/01/2014 15:32:56 learning about high blood pressure asavala Not available 04/01/2014 15:32:56 01/30/2024 [id number] A healthy lifestyle: care instructions [email or web address] Not available 01/30/2024 16:01:34 Quitting Tobacco : Care Instructions [email or web address] Not available 01/30/2024 16:01:34 Reason for Referral None Reported. Results Created Date Observation Date Name Description Value Unit Range Abnormal Flag Note LastModifiedBy Organization Detail LastModifiedTime 07/25/19 24 07/26/2023 LIPID PANEL cholesterol, total 185 mg/dL 100-19 9 Not Available [facility] ([facility]) [address] [facility], [place], [address], 07/26/2023 10:12:47 07/25/19 24 07/26/2023 LIPID PANEL triglyceride s 398 mg/dL 0-149 above high normal Not Available [facility] ([facility]) [address] [facility], [place], [address], 07/26/2023 10:12:47 07/25/19 24 07/26/2023 LIPID PANEL HDL cholesterol 41 mg/dL >39 Not Available [facility] ([facility]) [address] [facility] [place], [address], 07/26/2023 10:12:47 07/25/19 24 07/26/2023 LIPID PANEL VLDL cholesterol eliot 64 mg/dL 5-40 above high normal Not Available [facility] ([facility]) [address] [facility] [place], [address], 07/26/2023 10:12:47 07/25/19 24 07/26/2023 LIPID PANEL LDL chol calc ([facility]) 80 mg/dL 0-99 Not Available [facility]) [address] [facility] [place], [address], 07/26/2023 10:12:47 07/25/19 24 07/26/2023 T4, FREE T4,free(dire ct) 0.79 NG/dL 0.82-1 .77 below low normal Not Available [facility] ([facility]) [address] [place], [address], 07/26/2023 10:12:48 07/25/19 24 07/26/2023 COMP. METAB OLIC PANEL (14) glucose 95 mg/dL 70-99 Not Available [facility] ([facility]) [address] [place], [address], 07/26/2023 10:12:49 07/25/19 24 07/26/2023 COMP. METAB OLIC PANEL (14) BUN 13 mg/dL 6-24 Not Available [facility] ([facility]) [address] [place], [address], 07/26/2023 10:12:49 07/25/19 24 07/26/2023 COMP. METAB OLIC PANEL (14) creatinine 0.84 mg/dL 0.76-1 .27 Not Available [facility] ([facility]) [address] [place], [address], 07/26/2023 10:12:49 07/25/19 24 07/26/2023 COMP. METAB OLIC PANEL (14) eGFR 110 mL/mi n/1.7 3 >59 Not Available [facility] ([facility]) [address] [facility], [place], [address], 07/26/2023 10:12:49 07/25/19 24 07/26/2023 COMP. METAB OLIC PANEL (14) BUN/creatini ne ratio 15 9-20 Not Available [facility] ([facility]) [address] [facility], [place], [address], 07/26/2023 10:12:49 07/25/19 24 07/26/2023 COMP. METAB OLIC PANEL (14) sodium 142 mmol/ L 134-14 4 Not Available [facility] ([facility]) [address] [facility], [place], [address], 07/26/2023 10:12:49 07/25/19 24 07/26/2023 COMP. METAB OLIC PANEL (14) potassium 4.4 mmol/ L 3.5-5. 2 Not Available [facility] ([facility]) [address] [place], [address], 07/26/2023 10:12:49 07/25/19 24 07/26/2023 COMP. METAB OLIC PANEL (14) chloride 102 mmol/ L 96-106 Not Available [facility] ([facility]) [address] [place], [address], 07/26/2023 10:12:49 07/25/19 24 07/26/2023 COMP. METAB OLIC PANEL (14) carbon dioxide, total 25 mmol/ L 20-29 Not Available [facility] ([facility]) [address] [facility], [place], [address], 07/26/2023 10:12:49 07/25/19 24 07/26/2023 COMP. METAB OLIC PANEL (14) calcium 10.0 mg/dL 8.7-10 .2 Not Available [facility] ([facility]) [address] [facility] [place], [address], 07/26/2023 10:12:49 07/25/19 24 07/26/2023 COMP. METAB OLIC PANEL (14) protein, total 7.3 g/dL 6.0-8. 5 Not Available [facility] ([facility]) [address] [facility], [place], [address], 07/26/2023 10:12:49 07/25/19 24 07/26/2023 COMP. METAB OLIC PANEL (14) albumin 4.5 g/dL 4.1-5. 1 Not Available [facility] ([facility]) [address] [facility], [place], [address], 07/26/2023 10:12:49 07/25/19 24 07/26/2023 COMP. METAB OLIC PANEL (14) globulin, total 2.8 g/dL 1.5-4. 5 Not Available [facility] ([facility]) [address] [facility] [place], [address], 07/26/2023 10:12:49 07/25/19 24 07/26/2023 COMP. METAB OLIC PANEL (14) A/G ratio 1.6 1.2-2. 2 Not Available [facility] ([facility]) [address] [facility] [place], [address], 07/26/2023 10:12:49 07/25/19 24 07/26/2023 COMP. METAB OLIC PANEL (14) bilirubin, total 0.3 mg/dL 0.0-1. 2 Not Available [facility] ([facility]) [address] [facility] [place], [address], 07/26/2023 10:12:49 07/25/19 24 07/26/2023 COMP. METAB OLIC PANEL (14) alkaline phosphatase 104 IU/L 44-121 Not Available [facility] ([facility]) [address] [facility], [place], [address], 07/26/2023 10:12:49 07/25/19 24 07/26/2023 COMP. METAB OLIC PANEL (14) AST (SGOT) 23 IU/L 0-40 Not Available [facility] ([facility]) [address] [facility], [place], [address], 07/26/2023 10:12:49 07/25/19 24 07/26/2023 COMP. METAB OLIC PANEL (14) ALT (SGPT) 36 IU/L 0-44 Not Available [facility] ([facility]) [address] [facility], [place], [address], 07/26/2023 10:12:49 07/25/19 24 07/26/2023 HEMOG LOBIN A1C hemoglobin A1C 6.4 % 4.8-5. 6 above high normal Predi abete s: 5.7 - 6.4 Diabe dre: >6.4 Glyce merrill contr ol for adult s with diabe dre: <7.0 Not Available [facility] ([facility]) [address] [place], [address], 07/26/2023 10:12:49 07/25/19 24 07/26/2023 TSH TSH 3.210 uIU/m L 0.450- 4.500 Not Available [facility] ([facility]) [address] [place], [address], 07/26/2023 10:12:50 07/25/19 24 07/26/2023 CBC WITH DIFFE RENTI AL/PL ATELE T WBC 6.5 x10e3 /uL 3.4-10 .8 Not Available [facility] ([facility]) [address] [facility], [place], [address], 07/26/2023 10:12:51 07/25/19 24 07/26/2023 CBC WITH DIFFE RENTI AL/PL ATELE T RBC 4.74 x10e6 /uL 4.14-5 .80 Not Available [facility] ([facility]) [address] [place], [address], 07/26/2023 10:12:51 07/25/19 24 07/26/2023 CBC WITH DIFFE RENTI AL/PL ATELE T hemoglobin 14.9 g/dL 13.0-1 7.7 Not Available [facility] ([facility]) [address] [place], [address], 07/26/2023 10:12:51 07/25/19 24 07/26/2023 CBC WITH DIFFE RENTI AL/PL ATELE T hematocrit 44.1 % 37.5-5 1.0 Not Available [facility] ([facility]) [address] [place], [address], 07/26/2023 10:12:51 07/25/19 24 07/26/2023 CBC WITH DIFFE RENTI AL/PL ATELE T MCV 93 fL 79-97 Not Available [facility] ([facility]) [address] [place], [address], 07/26/2023 10:12:51 07/25/19 24 07/26/2023 CBC WITH DIFFE RENTI AL/PL ATELE T MCH 31.4 pg 26.6-3 3.0 Not Available [facility] ([facility]) [address] [place], [address], 07/26/2023 10:12:51 07/25/19 24 07/26/2023 CBC WITH DIFFE RENTI AL/PL ATELE T MCHC 33.8 g/dL 31.5-3 5.7 Not Available [facility] ([facility]) [address] [place], [address], 07/26/2023 10:12:51 07/25/19 24 07/26/2023 CBC WITH DIFFE RENTI AL/PL ATELE T RDW 14.4 % 11.6-1 5.4 Not Available [facility] ([facility]) [address] [facility], [place], [address], 07/26/2023 10:12:51 07/25/19 24 07/26/2023 CBC WITH DIFFE RENTI AL/PL ATELE T platelets 225 x10e3 /uL 150-45 0 Not Available [facility] ([facility]) [address] [facility], [place], [address], 07/26/2023 10:12:51 07/25/19 24 07/26/2023 CBC WITH DIFFE RENTI AL/PL ATELE T neutrophils 53 % notest ab. Not Available [facility] ([facility]) [address] [facility], [place], [address], 07/26/2023 10:12:51 07/25/19 24 07/26/2023 CBC WITH DIFFE RENTI AL/PL ATELE T lymphs 35 % notest ab. Not Available [facility] ([facility]) [address] [facility], [place], [address], 07/26/2023 10:12:51 07/25/19 24 07/26/2023 CBC WITH DIFFE RENTI AL/PL ATELE T monocytes 8 % notest ab. Not Available [facility] ([facility]) [address] [facility], [place], [address], 07/26/2023 10:12:51 07/25/19 24 07/26/2023 CBC WITH DIFFE RENTI AL/PL ATELE T eos 3 % notest ab. Not Available [facility] ([facility]) [address] [place], [address], 07/26/2023 10:12:51 07/25/19 24 07/26/2023 CBC WITH DIFFE RENTI AL/PL ATELE T basos 1 % notest ab. Not Available [facility] ([facility]) [address] [facility], [place], [address], 07/26/2023 10:12:51 07/25/19 24 07/26/2023 CBC WITH DIFFE RENTI AL/PL ATELE T neutrophils (absolute) 3.4 x10e3 /uL 1.4-7. 0 Not Available [facility] ([facility]) [address] [facility], [place], [address], 07/26/2023 10:12:51 07/25/19 24 07/26/2023 CBC WITH DIFFE RENTI AL/PL ATELE T lymphs (absolute) 2.3 x10e3 /uL 0.7-3. 1 Not Available [facility] ([facility]) [address] [facility], [place], [address], 07/26/2023 10:12:51 07/25/19 24 07/26/2023 CBC WITH DIFFE RENTI AL/PL ATELE T monocytes(ab solute) 0.5 x10e3 /uL 0.1-0. 9 Not Available [facility] ([facility]) [address] [facility], [place], [address], 07/26/2023 10:12:51 07/25/19 24 07/26/2023 CBC WITH DIFFE RENTI AL/PL ATELE T eos (absolute) 0.2 x10e3 /uL 0.0-0. 4 Not Available [facility] ([facility]) [address] [facility], [place], [address], 07/26/2023 10:12:51 07/25/19 24 07/26/2023 CBC WITH DIFFE RENTI AL/PL ATELE T baso (absolute) 0.1 x10e3 /uL 0.0-0. 2 Not Available [facility] ([facility]) [address] [facility], [place], [address], 07/26/2023 10:12:51 07/25/19 24 07/26/2023 CBC WITH DIFFE RENTI AL/PL ATELE T immature granulocytes 0 % notest ab. Not Available [facility] ([facility]) [address] [place], [address], 07/26/2023 10:12:51 07/25/19 24 07/26/2023 CBC WITH DIFFE RENTI AL/PL ATELE T immature grans (abs) 0.0 x10e3 /uL 0.0-0. 1 Not Available [facility] ([facility]) [address] [place], [address], 07/26/2023 10:12:51 07/25/19 24 07/26/2023 TRIIO DOTHY DYLLAN E (T3), FREE triiodothyro nine (T3), free 3.5 pg/mL 2.0-4. 4 Not Available [facility] ([facility]) [address] [place], [address], 07/26/2023 10:12:52 09/07/19 24 09/08/2023 LIPID PANEL cholesterol, total 152 mg/dL 100-19 9 Not Available [facility] ([facility]) [address] [place], [address], 09/08/2023 08:23:45 09/07/19 24 09/08/2023 LIPID PANEL triglyceride s 212 mg/dL 0-149 above high normal Not Available [facility] ([facility]) [address] [place], [address], 09/08/2023 08:23:45 09/07/19 24 09/08/2023 LIPID PANEL HDL cholesterol 38 mg/dL >39 below low normal Not Available [facility] ([facility]) [address] [place], [address], 09/08/2023 08:23:45 09/07/19 24 09/08/2023 LIPID PANEL VLDL cholesterol eliot 36 mg/dL 5-40 Not Available [facility] ([facility]) [address] [place], [address], 09/08/2023 08:23:45 09/07/19 24 09/08/2023 LIPID PANEL LDL chol calc ([facility]) 78 mg/dL 0-99 Not Available [facility] ([facility]) [address] [place], [address], 09/08/2023 08:23:45 01/30/20 24 01/31/2024 LIPID PANEL cholesterol, total 178 mg/dL 100-19 9 Not Available [facility] ([facility]) [address] [facility] [place], [address], 01/31/2024 11:18:35 01/30/20 24 01/31/2024 LIPID PANEL triglyceride s 329 mg/dL 0-149 above high normal Not Available [facility] ([facility]) [address] [facility] [place], [address], 01/31/2024 11:18:35 01/30/20 24 01/31/2024 LIPID PANEL HDL cholesterol 40 mg/dL >39 Not Available [facility] ([facility]) [address] [facility] [place], [address], 01/31/2024 11:18:35 01/30/20 24 01/31/2024 LIPID PANEL VLDL cholesterol eliot 54 mg/dL 5-40 above high normal Not Available [facility] ([facility]) [address] [facility] [place], [address], 01/31/2024 11:18:35 01/30/20 24 01/31/2024 LIPID PANEL LDL chol calc ([facility]) 84 mg/dL 0-99 Not Available [facility] ([facility]) [address] [facility] [place], [address], 01/31/2024 11:18:35 01/30/20 24 01/31/2024 COMP. METAB OLIC PANEL (14) glucose 101 mg/dL 70-99 above high normal Not Available [facility] ([facility]) [address] [facility] [place], [address], 01/31/2024 11:18:37 01/30/20 24 01/31/2024 COMP. METAB OLIC PANEL (14) BUN 11 mg/dL 6-24 Not Available [facility] ([facility]) [address] [facility] [place], [address], 01/31/2024 11:18:37 01/30/20 24 01/31/2024 COMP. METAB OLIC PANEL (14) creatinine 0.75 mg/dL 0.76-1 .27 below low normal Not Available [facility] ([facility]) [address] [facility] [place], [address], 01/31/2024 11:18:37 01/30/20 24 01/31/2024 COMP. METAB OLIC PANEL (14) eGFR 113 mL/mi n/1.7 3 >59 Not Available [facility] ([facility]) [address] [facility], [place], [address], 01/31/2024 11:18:37 01/30/20 24 01/31/2024 COMP. METAB OLIC PANEL (14) BUN/creatini ne ratio 15 9-20 Not Available [facility] ([facility]) [address] [facility] [place], [address], 01/31/2024 11:18:37 01/30/20 24 01/31/2024 COMP. METAB OLIC PANEL (14) sodium 143 mmol/ L 134-14 4 Not Available [facility] ([facility]) [address] [facility] [place], [address], 01/31/2024 11:18:37 01/30/20 24 01/31/2024 COMP. METAB OLIC PANEL (14) potassium 4.5 mmol/ L 3.5-5. 2 Not Available [facility] ([facility]) [address] [facility] [place], [address], 01/31/2024 11:18:37 01/30/20 24 01/31/2024 COMP. METAB OLIC PANEL (14) chloride 105 mmol/ L 96-106 Not Available [facility] ([facility]) [address], [place], [address], 01/31/2024 11:18:37 01/30/20 24 01/31/2024 COMP. METAB OLIC PANEL (14) carbon dioxide, total 25 mmol/ L 20-29 Not Available [facility] ([facility]) [address], [place], [address], 01/31/2024 11:18:37 01/30/20 24 01/31/2024 COMP. METAB OLIC PANEL (14) calcium 10.1 mg/dL 8.7-10 .2 Not Available [facility] ([facility]) [address] [facility], [place], [address], 01/31/2024 11:18:37 01/30/20 24 01/31/2024 COMP. METAB OLIC PANEL (14) protein, total 7.0 g/dL 6.0-8. 5 Not Available [facility] ([facility]) [address] [facility], [place], [address], 01/31/2024 11:18:37 01/30/20 24 01/31/2024 COMP. METAB OLIC PANEL (14) albumin 4.3 g/dL 4.1-5. 1 Not Available [facility] ([facility]) [address] [facility], [place], [address], 01/31/2024 11:18:37 01/30/20 24 01/31/2024 COMP. METAB OLIC PANEL (14) globulin, total 2.7 g/dL 1.5-4. 5 Not Available [facility] ([facility]) [address] [facility], [place], [address], 01/31/2024 11:18:37 01/30/20 24 01/31/2024 COMP. METAB OLIC PANEL (14) bilirubin, total <0.2 mg/dL 0.0-1. 2 Not Available [facility] ([facility]) [address] [facility], [place], [address], 01/31/2024 11:18:37 01/30/20 24 01/31/2024 COMP. METAB OLIC PANEL (14) alkaline phosphatase 110 IU/L 44-121 Not Available [facility] ([facility]) [address] [facility], [place], [address], 01/31/2024 11:18:37 01/30/20 24 01/31/2024 COMP. METAB OLIC PANEL (14) AST (SGOT) 18 IU/L 0-40 Not Available [facility] ([facility]) [address] [facility], [place], [address], 01/31/2024 11:18:37 01/30/20 24 01/31/2024 COMP. METAB OLIC PANEL (14) ALT (SGPT) 29 IU/L 0-44 Not Available [facility] ([facility]) [address] [place], [address], 01/31/2024 11:18:37 01/30/20 24 01/31/2024 CBC WITH DIFFE RENTI AL/PL ATELE T WBC 6.4 x10e3 /uL 3.4-10 .8 Not Available [facility] ([facility]) [address] [place], [address], 01/31/2024 11:18:39 01/30/20 24 01/31/2024 CBC WITH DIFFE RENTI AL/PL ATELE T RBC 4.88 x10e6 /uL 4.14-5 .80 Not Available [facility] ([facility]) [address] [facility], [place], [address], 01/31/2024 11:18:39 01/30/20 24 01/31/2024 CBC WITH DIFFE RENTI AL/PL ATELE T hemoglobin 15.8 g/dL 13.0-1 7.7 Not Available [facility] ([facility]) [address] [facility], [place], [address], 01/31/2024 11:18:39 01/30/20 24 01/31/2024 CBC WITH DIFFE RENTI AL/PL ATELE T hematocrit 47.0 % 37.5-5 1.0 Not Available [facility] ([facility]) [address] [facility], [place], [address], 01/31/2024 11:18:39 01/30/20 24 01/31/2024 CBC WITH DIFFE RENTI AL/PL ATELE T MCV 96 fL 79-97 Not Available [facility] ([facility]) [address] [facility], [place], [address], 01/31/2024 11:18:39 01/30/20 24 01/31/2024 CBC WITH DIFFE RENTI AL/PL ATELE T MCH 32.4 pg 26.6-3 3.0 Not Available [facility] ([facility]) [address] [place], [address], 01/31/2024 11:18:39 01/30/20 24 01/31/2024 CBC WITH DIFFE RENTI AL/PL ATELE T MCHC 33.6 g/dL 31.5-3 5.7 Not Available [facility] ([facility]) [address] [place], [address], 01/31/2024 11:18:39 01/30/20 24 01/31/2024 CBC WITH DIFFE RENTI AL/PL ATELE T RDW 14.6 % 11.6-1 5.4 Not Available [facility] ([facility]) [address] [place], [address], 01/31/2024 11:18:39 01/30/20 24 01/31/2024 CBC WITH DIFFE RENTI AL/PL ATELE T platelets 215 x10e3 /uL 150-45 0 Not Available [facility] ([facility]) [address] [facility], [place], [address], 01/31/2024 11:18:39 01/30/20 24 01/31/2024 CBC WITH DIFFE RENTI AL/PL ATELE T neutrophils 49 % notest ab. Not Available [facility] ([facility]) [address] [facility], [place], [address], 01/31/2024 11:18:39 01/30/20 24 01/31/2024 CBC WITH DIFFE RENTI AL/PL ATELE T lymphs 38 % notest ab. Not Available [facility] ([facility]) [address] [facility], [place], [address], 01/31/2024 11:18:39 01/30/20 24 01/31/2024 CBC WITH DIFFE RENTI AL/PL ATELE T monocytes 9 % notest ab. Not Available [facility] ([facility]) [address] [facility], [place], [address], 01/31/2024 11:18:39 01/30/20 24 01/31/2024 CBC WITH DIFFE RENTI AL/PL ATELE T eos 3 % notest ab. Not Available [facility] ([facility]) [address] [facility], [place], [address], 01/31/2024 11:18:39 01/30/20 24 01/31/2024 CBC WITH DIFFE RENTI AL/PL ATELE T basos 1 % notest ab. Not Available [facility] ([facility]) [address] [facility], [place], [address], 01/31/2024 11:18:39 01/30/20 24 01/31/2024 CBC WITH DIFFE RENTI AL/PL ATELE T neutrophils (absolute) 3.1 x10e3 /uL 1.4-7. 0 Not Available [facility] ([facility]) [address] [facility], [place], [address], 01/31/2024 11:18:39 01/30/20 24 01/31/2024 CBC WITH DIFFE RENTI AL/PL ATELE T lymphs (absolute) 2.5 x10e3 /uL 0.7-3. 1 Not Available [facility] ([facility]) [address] [facility], [place], [address], 01/31/2024 11:18:39 01/30/20 24 01/31/2024 CBC WITH DIFFE RENTI AL/PL ATELE T monocytes(ab solute) 0.6 x10e3 /uL 0.1-0. 9 Not Available [facility] ([facility]) [address] [facility], [place], [address], 01/31/2024 11:18:39 01/30/20 24 01/31/2024 CBC WITH DIFFE RENTI AL/PL ATELE T eos (absolute) 0.2 x10e3 /uL 0.0-0. 4 Not Available [facility] ([facility]) [address] [facility], [place], [address], 01/31/2024 11:18:39 01/30/20 24 01/31/2024 CBC WITH DIFFE RENTI AL/PL ATELE T baso (absolute) 0.1 x10e3 /uL 0.0-0. 2 Not Available [facility] ([facility]) [address] [facility], [place], [address], 01/31/2024 11:18:39 01/30/20 24 01/31/2024 CBC WITH DIFFE RENTI AL/PL ATELE T immature granulocytes 0 % notest ab. Not Available [facility] ([facility]) [address] [facility], [place], [address], 01/31/2024 11:18:39 01/30/20 24 01/31/2024 CBC WITH DIFFE RENTI AL/PL ATELE T immature grans (abs) 0.0 x10e3 /uL 0.0-0. 1 Not Available [facility] ([facility]) [address] [facility], [place], [address], 01/31/2024 11:18:39 01/30/20 24 01/31/2024 PROST ATE-S PECIF IC AG prostate specific Ag 0.5 NG/mL 0.0-4. 0 Onel ECLIA metho dolog y. Accor ding to the Ameri can [employer]rolo g[employer] Ass[employer] iatio n, Serum PSA shoul d decre ase and remai n at undet ectab le level s after radic al prost atect gagan. The AUA defin es bioch emica l recur rence as an initi al PSA value 0.2 ng/mL or great er follo wed by a subse quent confi rmato ry PSA value 0.2 ng/mL or great er. Value s obtai caro with diffe rent assay metho ds or kits canno t be used inter crawley eably . Resul ts canno t be inter prete d as absol andrew evide nce of the prese nce or absen ce of zoraida prescotta se. Not Available [facility] ([facility]) [address] [facility], [place], [address], 01/31/2024 11:18:40 Result Notes None recorded. Problems Name Problem SNOMED Code Status Onset Date Resolution Date Notes Provider Name and Address Organization Details Recorded Time Obesity 355077455 Active 2023 Cayden Santillan MD Attn: Ra watters,[address] [place], [address], [facility] - [facility] 4 22:20:37 Dyslipidemia 289132654 Active 2023 Cayden Santillan MD Attn: Ra watters,[address] [facility], [place], [address], [place] - [facility] 4 22:20:38 Obstructive sleep apnea syndrome 43156496 Active 2023 Cayden Santillan MD Attn: Ra watters,[address] [facility], [place], [address], [facility] - [facility] 4 22:20:42 Pure hypercholester olemia 091269367 Active Myriam Warner MD Attn: Ra watters,[address] [facility], [place], [address], [facility] [place] 5 09:33:07 Hand wart 898670822 Active Myriam Warner MD Attn: Ra watters,[address] [facility], [place], [address], [facility] 5 13:30:04 Essential hypertension 33546069 Active Myriam Warner MD Attn: Prabhubrigid watters,[address] [facility], [place], [address], [facility] - [facility] 5 13:30:04 Notes: Folow Up 38y/o WM wh o was last seen in this office 12/24/13, he was seen by the neurologist, Dr. Zhu yesterday. I want to know what this was, wart? 1 month Problem Notes None recorded. Procedures Surgical History Date Name Laterality Status Provider Name and Address Organization Details Recorded Time Back Surgery completed June Essie [facility] 04/01/2014 13:06:24 Joint Replacement completed [facility] 07/25/2023 14:15:06 Vasectomy completed [facility] 07/25/2023 14:15:11 Imaging Results None recorded. Procedure Notes None recorded. Medical Equipment None Reported. Allergies No known drug allergies Medications Name Sig Start Date Stop Date Status Note LastModified by Organization Details LastModified Time atorvastati n 40 mg tablet 07/24 completed Not Available Not Available Not Available atorvastati n 80 mg tablet TAKE ONE TABLET DAILY 07/24 completed Not Available Not Available Not Available hydrocodone 5 mg-acetamin ophen 325 mg tablet one po bid prn with pain active Not Available Not Available No t Available hydrocodone 10 mg-acetamin ophen 325 mg tablet 07/24 completed Not Available Not Available Not Available Tylenol 500 mg tablet Take 4 tablets every day by oral route. active Not Available Not Available No t Available podofilox 0.5 % topical solution APPLY BY TOPICAL ROUTE EVERY 12 HOURS FOR 3 CONSECUTI VE DAYS, THEN DISCONTIN UE FOR 4 CONSECUTI VE DAYS. THIS ONE WEEK CYCLE OF TREATMENT MAYBE REPEATED UNTIL THERE IS NO VISIBLE WART TISSUE OR FOR A MAXIMUM OFFOUR CYCLES. 07/24 completed Not Available Not Available Not Available diclofenac sodium 75 mg tablet,giovanni yed release TAKE 1 TABLET BY MOUTH TWICE A DAY active Not Available Not Available No t Available testosteron e cypionate 200 mg/mL intramuscul ar oil INJECT 0.25 ML INTRAMUSC ULARLY EVERY 4 WEEKS (DISCARD UNUSED PORTION AFTER FIRST USE) 07/24 completed Not Available Not Available Not Available losartan 50 mg-hydrochl orothiazide 12.5 mg tablet TAKE 1 TABLET BY MOUTH DAILY 2023 active Not Available Not Available Not Avai lable naproxen 500 mg tablet TAKE 1 TABLET BY MOUTH TWICE A DAY 07/24 completed Not Available Not Available Not Available rosuvastati n 20 mg tablet TAKE 1 TABLET BY MOUTH DAILY 2024 active Not Available Not Available Not Avai lable Vitals Date Recorded Respiratory rate Body weight Heart rate Body mass index (BMI) Body height Body temperature Systolic blood pressure Diastolic blood pressure Provider Name and Address Organization Details Last Updated DateTime 5 20 /min 652495. 812748 g 76 /min 30.3 kg/m2 182.88 cm 97.6 [degF] 140 mm[Hg] 78 mm[Hg] June [facility] [place] - [facility] 5 13:06:24 Date Recorded Body height Body weight Heart rate Oxygen saturation Oxygen saturation in Arterial blood by Pulse oximetry Systolic blood pressure Diastolic blood pressure Provider Name and Address Organization Details Last Updated DateTime 4 182.88 cm 417009. 48 g 89 /min 97 % 97 % 134 mm[Hg] 86 mm[Hg] Temi Marroquin [place] - [facility] 4 14:18:41 Date Recorded Body height Body mass index (BMI) Body weight Heart rate Oxygen saturation Oxygen saturation in Arterial blood by Pulse oximetry Systolic blood pressure Diastolic blood pressure Provider Name and Address Organization Details Last Updated DateTime 4 182.88 cm 39.6 kg/m2 702745. 33 g 96 /min 95 % 95 % 132 mm[Hg] 64 mm[Hg] Shayna Lopez [place] - [facility] 13:50:32 Social History Question Answer Notes LastModified by Organizat ion Details LastModified Time Tobacco Smoking Status Current Every Day Smoker June [facility], [place] - [facility] 04/01/2014 13:06:24 What Is Your Level Of Alcohol Consumption? Occasional Information not available 07/25/2023 Are You Blind Or Do You Have Difficulty Seeing? No Information not available 07/25/2023 What Is Your Level Of Caffeine Consumption? Moderate Information not available 01/30/2024 In The 14 Days Before Symptom Onset, Have You Had Close Contact With A Laboratory-confir med COVID-19 While That Case Was Ill? No Information not available 01/30/2024 In The 14 Days Before Symptom Onset, Have You Had Close Contact With A Person Who Is Under Investigation For COVID-19 While That Person Was Ill? No Information not available 01/30/2024 Have You Been To An Area Known To Be High Risk For COVID-19? No Information not available 01/30/2024 Are You Currently Employed? Yes Information not available 01/30/2024 Are You Deaf Or Do You Have Serious Difficulty Hearing? No Information not available 07/25/2023 What Type Of Diet Are You Following? REGULAR Information not available 01/30/2024 Are There Any Guns Present In Your Home? No Information not available 01/30/2024 What Was The Date Of Your Most Recent Tobacco Screening? 01/30/2024 Information not available 01/30/2024 What Is Your Relationship Status? Single Information not available 07/25/2023 Do You Use Your Seat Belt Or Car Seat Routinely? Yes Information not available 07/25/2023 Do You Have Smoke And Carbon Monoxide Detectors In Your Home? Yes Information not available 01/30/2024 How Much Tobacco Do You Smoke? 0.5 PPD Information not available 07/25/2023 Do You Feel Stressed (tense, Restless, Nervous, Or Anxious, Or Unable To Sleep At Night)? [id number] Information not available 07/25/2023 Do You Use Any Illicit Or Recreational Drugs? No Information not available 01/30/2024 Do You Use Sunscreen Routinely? Yes Information not available 01/30/2024 Has Tobacco Cessation Counseling Been Provided? Yes Information not available 01/30/2024 On What Date Was Tobacco Cessation Counseling Provided? 01/30/2024 Information not available 01/30/2024 How Many Years Have You Smoked Tobacco? 20 Information not available 07/25/2023 Sex: Unknown Functional Status Question Answer Note LastModified by Organization D etails LastModified Time Are you able to care for yourself? Yes Information n ot available 07/25/2023 What is your exercise level? None Information not available 01/30/2024 Mental Status None recorded. Family History Relationship Description Onset Age of this Age Resolved Age Notes LastModified by Organization Details LastModified Time Mother Hypertensive disorder asavala Not available 2014 13:06:24 Mother Hypercholest erolemia apaytonma Not available 2023 14:15:21 Medical History Condition Response Obesity Y High Blood Pressure Y Back Pain Y Obstructive Sleep Apnea Y Depression Y High Cholesterol Y Past Encounters Encounter ID Performer Location Encounter Start Date Encounter Closed Date Diagnosis/Indication Diagnosis SNOMED-CT Code Diagnosis ICD10 Code Diagnosis Note [id number] June [facility] (Adult Med) [address] [place] [phone] 04/01/2014 12:25:04 04/01/2014 16:01:29 Pure hypercholesterolemia 691342466 LDL is better but not optimal, low carbohydra te, low fat diet was discussed. I will increase his Lipitor to 80MG po daily Hand wart 917473605 Essential hypertension 38844444 [id number] MD Muriel Kat (Adult Med) [address] [place] [address] 07/25/2023 13:51:57 07/25/2023 15:11:25 Essential hypertension 85445484 I10 Obesity 075832816 E66.9 Dyslipidemia 894447734 E 78.5 Obstructiv e sleep apnea syndrome 93858463 G47.33 [id number] Cayden Santillan MD [facility] (Adult [facility]) [address] [place] [address] 01/30/2024 13:27:43 01/30/2024 14:16:09 Smoker 64297903 F17.200 Obesity 665054039 E66.9 Essential hypertension 50283860 I10 Screening for malignant neoplasm of colon 300816033 Z12.11 Screening for malignant neoplasm of prostate 540978946 Z12.5 Dyslipidemia 490793566 E 78.5 Obstructiv e sleep apnea syndrome 45243903 G47.33 Health Concerns Section Related Observation LastModified by Organization Detai ls LastModified Time None Recorded Concern Status LastModified by Organization Details LastModified Time None Recorded Advance Directives Directive None Recorded Payers Encounter Date Sequence Insurance Name Policy Number Policy Sparrow Covered Member ID Sparrow Member ID Guarantor Name 04/01/2014 1 [facility] (MEDICAID HMO) Antonio Mikolaszuk [id number] Antonio Mikolaszuk 07/25/2023 1 [facility] [id number] Antonio Mikolaszuk [id number] Antonio Mikolaszuk 01/30/2024 1 [facility] [id number] Antonio Mikolaszuk [id number] Antonio Mikolaszuk Notes Date Note Type Note Provider Name and Address Organization Details Recorded Time 07/25/2023 text/html 47-year-old with a history of hypertension and hyperlipidemia does wear CPAP for sleep apnea Cayden Santillan MD Attn: [address] [place], [address], [facility] 08/11/2023 22:21:25 01/30/2024 text/html hypertension no headache or dizziness blood pressure controlled. Dyslipidemia he can do better with diet he is not having any problems with the rosuvastatin sleep apnea benefitting from his CPAP. He needs a colonoscopy and he needs to lose some weight Cayden Santillan MD Attn: [address] [place], [address], [facility] 02/10/2024 15:29:35
[2024-06-19 08:16] VITALS: BP 144/98; PULSE 85; RESP 18; TEMP 36.7; O2SAT 96; BMI 38.9
[2024-06-19] MEDS: LACTATED RINGERS 1,000 ML 150 ML IV CONT (08:58)
--- NOTE | 2024-06-19 09:04 | WPDANESEPPF ---
Anes - Initial Pre Proc Eval Procedure: Operation Date: 06/19/24 09:30 Proposed Procedures p Screening Colonoscopy - Rajeev Rg MD Date/Time: 06/19/24 09:04 Surgeon: Rajeev Rg MD Pre Op Diagnosis: Screening for malignant neoplasm of colon Patient Data Age: 48 Gender: M Height: 1.83 m Weight: 130.5 kg Last Vital Signs Temp 98.0 F 06/19/24 08:16 Pulse 85 06/19/24 08:16 Resp 18 06/19/24 08:16 BP 144/98 H 06/19/24 08:16 Pulse Ox 96 06/19/24 08:16 O2 Del Method Room Air 06/19/24 08:16 Allergies Allergy/AdvReac Type Severity Reaction Status Date / Time No Known Allergies Allergy Verified 06/19/24 08:24 Home Medications ?Medication ?Instructions ?Recorded ?Confirmed ?Type acetaminophen 500 mg capsule 500 mg PO Q6H PRN pain 08/22/23 06/11/24 History losartan 50 mg tablet 50 mg PO DAILY 08/22/23 06/19/24 History rosuvastatin 20 mg tablet 20 mg PO DAILY 08/22/23 06/19/24 History Patient hx anesthesia problems: none Family hx anesthesia problems: none Results Review: All pre-operative results and documents have been reviewed as part of the pre-operative evaluation. [facility] Past Medical History Medical History (Updated 08/23/23 @ 14:07 by Reese Varela MD) High cholesterol Hypertension Surgical History Surgical History (Updated 08/22/23 @ 14:10 by Tanesha Kathleen CMA) History of hip replacement left - 2018 History of back surgery x2 Social History Social History (Updated 08/22/23 @ 14:11 by Tanesha Kathleen CMA) Smoking packs per day: 0.5 Smoking cigarettes per day: 10.0 Smoking status: Current every day smoker Tobacco type: cigarettes Alcohol intake: former Drinks per week: 2 Alcohol use details: occasionally Substance use type: does not use Do You Feel Safe in your Home?: Yes Lack of Transportation: No Lack of Food: Never True Current Housing: I Have Housing Concerned About Future Housing: No Difficulty Paying Gas/Electric Bills: No Difficulty Paying for Meds: No Currently Unemployed: No Education: High School Diploma/GED Difficulty w/ Childcare or Family Care: No Living arrangements: with family Occupation/Education: occupation 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 Informed Consent: The patient's anesthetic plan and its attendant risks and benefits were discussed with the patient/family/POA. Questions were solicited and answers provided to the satisfaction of the patient/family/POA.
--- NOTE | 2024-06-19 10:41 | PM.IMHP ---
H&P: HPI History of Present Illness Date/Time: 06/19/24 10:41 Chief Complaint: Screening colonoscopy Narrative: This is the patient's first colonoscopy. There are no GI symptoms and there is no family history of colorectal cancer. Review of Systems Review of Systems: All systems reviewed & are unremarkable except as noted in HPI and below [facility] Past Medical History Medical History (Updated 06/19/24 @ 10:42 by Rajeev Rg MD) High cholesterol Hypertension Surgical History Surgical History (Updated 08/22/23 @ 14:10 by Tanesha Kathleen CMA) History of hip replacement left - 2018 History of back surgery x2 Social History Social History (Updated 08/22/23 @ 14:11 by Tanesha Kathleen CMA) Smoking packs per day: 0.5 Smoking cigarettes per day: 10.0 Smoking status: Current every day smoker Tobacco type: cigarettes Alcohol intake: former Drinks per week: 2 Alcohol use details: occasionally Substance use type: does not use Do You Feel Safe in your Home?: Yes Lack of Transportation: No Lack of Food: Never True Current Housing: I Have Housing Concerned About Future Housing: No Difficulty Paying Gas/Electric Bills: No Difficulty Paying for Meds: No Currently Unemployed: No Education: High School Diploma/GED Difficulty w/ Childcare or Family Care: No Living arrangements: with family Occupation/Education: occupation 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 Spiritual care concerns: No Meds Home Medications and Allergies Home Medications ?Medication ?Instructions ?Recorded ?Confirmed ?Type acetaminophen 500 mg capsule 500 mg PO Q6H PRN pain 08/22/23 06/11/24 History losartan 50 mg tablet 50 mg PO DAILY 08/22/23 06/19/24 History rosuvastatin 20 mg tablet 20 mg PO DAILY 08/22/23 06/19/24 History Allergies Allergy/AdvReac Type Severity Reaction Status Date / Time No Known Allergies Allergy Verified 06/19/24 08:24 Vital Signs Vital Signs - 24 hr 06/19/24 08:16 Temperature 98.0 F Pulse Rate 85 Respiratory Rate 18 Blood Pressure 144/98 H Pulse Oximetry 96 Oxygen Delivery Room Air Exam Const: General: cooperative and healthy appearing Resp: Effort & Inspection: normal respiratory effort and able to speak in complete sentences Auscultation: clear to auscultation bilaterally Cardio: Rate: regular rate Rhythm: regular rhythm GI: Inspection: normal to inspection GI Palp: No No hepatosplenomegaly present Auscultation: normal bowel sounds Rectal Exam: deferred Skin: General skin exam: normal color Psych: Appearance: grossly normal Mental Status: mental status grossly normal Assessment and Plan Assessment and plan (1) Encounter for screening colonoscopy: Code(s): Z12.11 - Encounter for screening for malignant neoplasm of colon Status: Acute Assessment and Plan: The patient is deemed a good candidate for the procedure. Consent signed. Will proceed.
[2024-06-19 11:16] VITALS: BP 133/86; PULSE 88; RESP 18; O2SAT 96
[2024-06-19 11:26] VITALS: BP 140/100; PULSE 89; RESP 22; O2SAT 93
[2024-06-19 11:36] VITALS: BP 164/101; PULSE 85; RESP 20; O2SAT 96
--- NOTE | 2024-06-19 11:39 | SUR.PHASEII ---
Notified Dr Mckeon of blood pressure. Instrusted patient to take losartan when home. Okay to discharge.
== END 2024-06-19 11:48 | disposition home or self-care (01) ==
PROVIDERS: PCP Internal Medicine; Referring Provider Internal Medicine; Visit Provider Internal Medicine Gastroenterology
PROC: 0DJD8ZZ Inspection of Lower Intestinal Tract, Via Natural or Artificial Opening Endoscopic (ICD-10-PCS; CPT 45378; principal; 2024-06-19 09:30)
DX: Z12.11 Encounter for screening for malignant neoplasm of colon (principal); K63.5 Polyp of colon; I10 Essential (primary) hypertension; E78.00 Pure hypercholesterolemia, unspecified; F17.210 Nicotine dependence, cigarettes, uncomplicated; E66.01 Morbid (severe) obesity due to excess calories; Z68.39 Body mass index [BMI] 39.0-39.9, adult; Z98.890 Other specified postprocedural states; Z98.1 Arthrodesis status
CPT/HCPCS: 45385; 88305; J2003; J2704; J7120